=== PATIENT | female | born 1950 | race Asian ===

== ENCOUNTER 2017-11-10 08:52 | Outpatient (CLI) | payer OTHER | END 2017-11-10 08:55 | disposition short-term general hospital (02) | LOC: AMB 08:52 | DX: Z04.1 Encounter for examination and observation following transport accident (principal) | CPT/HCPCS: A0425; A0429 ==

== ENCOUNTER 2017-11-10 08:54 | Emergency (ER) | payer OTHER ==
[~2017-11-10] VITALS: Ht 167.6 cm; Wt 116.1 kg
[2017-11-10 09:00] VITALS: TEMP 97.3
[2017-11-10 11:00] VITALS: BP 122/64
== END 2017-11-10 11:29 | disposition home or self-care (01) ==
LOC: ED 08:54
DX: M25.562 Pain in left knee (principal); V44.9XXA Unspecified car occupant injured in collision with heavy transport vehicle or bus in traffic accident, initial encounter; Y92.89 Other specified places as the place of occurrence of the external cause
CPT/HCPCS: 81000; 99283

== ENCOUNTER 2017-11-29 08:12 | Day surgery (SDC) | payer OTHER ==
[2017-11-25 09:11] LABS: PLATELET COUNT 181 K/uL (152-353)
[2017-11-25 09:34] LABS: POTASSIUM 4.4 mmol/L (3.6-5.2)
== END 2017-11-29 10:50 | disposition home or self-care (01) ==
LOC: OR 08:12
PROVIDERS: Student in an Organized Health Care Education/Training Program
PROC: 0DB48ZZ Excision of Esophagogastric Junction, Via Natural or Artificial Opening Endoscopic (ICD-10-PCS; principal; 2017-11-29)
PROC: 0DB68ZZ Excision of Stomach, Via Natural or Artificial Opening Endoscopic (ICD-10-PCS; 2017-11-29)
DX: K29.50 Unspecified chronic gastritis without bleeding (principal); R10.13 Epigastric pain; Z79.1 Long term (current) use of non-steroidal anti-inflammatories (NSAID)
CPT/HCPCS: 36415; 80053; 85027; J2001; J2250; J2704